=== PATIENT | female | born 1965 ===

== ENCOUNTER 2017-06-25 10:32 | Day surgery (SDC) | payer SELFPAY ==
[2017-06-25 10:56] VITALS: BMI 21.3
[2017-06-25] MEDS ORDERED: Lactated Ringer's 500 ML IV ONE (10:57)
[2017-06-25] MEDS ORDERED: Propofol 10 mg/ml Inj (20 ML) ONE ×2 (11:17→11:28)
[2017-06-25] MEDS ORDERED: Midazolam 2 MG/2 ML VIAL ONE (11:17)
[2017-06-25 11:20] VITALS: O2SAT 99
[2017-06-25 12:24] VITALS: BP 96/57; PULSE 62; RESP 14; TEMP 96.6
== END 2017-06-25 13:42 | disposition home or self-care (01) ==
LOC: H.ENDO 10:32
PROVIDERS: ATTEND Internal Medicine Gastroenterology
DX: Z12.11 Encounter for screening for malignant neoplasm of colon (principal); K64.0 First degree hemorrhoids

== ENCOUNTER 2018-10-14 07:32 | Emergency (ER) | payer SELFPAY ==
[2018-10-14 07:36] VITALS: BMI 23.6
[2018-10-14 07:37] VITALS: O2SAT 98
--- NOTE | 2018-10-14 10:01 | ED PDOC ---
Upper Extremity Pain/Injury Time Seen by Provider: 10/14/18 08:37 Chief Complaint (Nursing): Upper Extremity Problem/Injury Chief Complaint (Provider): Upper Extremity Problem/Injury History Per: Patient History/Exam Limitations: no limitations Onset/Duration Of Symptoms: Days (x 2) Current Symptoms Are (Timing): Still Present Quality: "Pain" Additional Complaint(s): 53 year old female with no significant medical history presents to the ED with neck and shoulder pain for two days. Today it is associated with a headache. Patient denies trauma, a history of similar symptoms, fever, nausea, vomiting, neurological deficits, weakness, sick contacts and recent travel. PMD: none provided Past Medical History Reviewed: Historical Data, Nursing Documentation, Vital Signs Vital Signs: Last Vital Signs Temp 98 F 10/14/18 07:36 Pulse 59 L 10/14/18 07:36 Resp 17 10/14/18 07:36 BP 133/89 10/14/18 07:36 Pulse Ox 98 10/14/18 07:44 - Medical History PMH: No Chronic Diseases - Surgical History Surgical History: No Surg Hx - Family History Family History: States: Unknown Family Hx - Home Medications Home Medications: Ambulatory Orders Medication Instructions Recorded RX: Ibuprofen 800 mg PO Q6 #28 tablet 10/14/18 - Allergies Allergies/Adverse Reactions: Allergies Allergy/AdvReac Type Severity Reaction Status Date / Time No Known Allergies Allergy Verified 10/14/18 07:44 Review of Systems ROS Statement: Except As Marked, All Systems Reviewed And Found Negative Constitutional: Negative for: Fever Respiratory: Negative for: Shortness of Breath Gastrointestinal: Negative for: Nausea, Vomiting Musculoskeletal: Positive for: Neck Pain, Shoulder Pain Neurological: Positive for: Headache. Negative for: Weakness, Numbness Physical Exam - Reviewed Nursing Documentation Reviewed: Yes Vital Signs Reviewed: Yes - Physical Exam Appears: Positive for: Non-toxic, No Acute Distress Head Exam: Positive for: ATRAUMATIC, NORMAL INSPECTION, NORMOCEPHALIC Skin: Positive for: Normal Color, Warm, Dry Eye Exam: Positive for: EOMI, Normal appearance, PERRL Neck: Positive for: Pain On Movement Of Neck (paraspinal tenderness to neck ). Negative for: Normal (tenderness to palpation of spine) Cardiovascular/Chest: Positive for: Regular Rate, Rhythm. Negative for: Murmur Respiratory: Positive for: Normal Breath Sounds. Negative for: Respiratory Distress Gastrointestinal/Abdominal: Positive for: Normal Exam, Soft. Negative for: Tenderness Back: Positive for: Other (tenderness of muscle on palpation of upper back). Negative for: Normal Inspection Extremity: Positive for: Normal ROM. Negative for: Deformity, Swelling Neurologic/Psych: Positive for: Alert, Oriented. Negative for: Motor/Sensory Deficits - ECG O2 Sat by Pulse Oximetry: 98 (RA) Pulse Ox Interpretation: Normal Medical Decision Making Medical Decision Makin:54 MDM: workup for musculoskeletal pain Possibly due to myalgias Influenza swab ordered Toradol and Flexeril given. Because there are no abnormalities on movement of neck, there is no indication for imaging at this time. Will reassess patient. 10:49 Pain has not improved. Will get CT of the neck and reassess patient. 12:29 CT C-spine FINDINGS: VERTEBRAE: No fracture. Normal alignment. No destructive bony lesion. There is a straightening of the cervical spine and slight reversal of the normal lordosis which could be due to the patient's position or degenerative changes. DISCS/SPINAL CANAL/NEURAL FORAMINA: There is posterior osteophyte disc bulge complex at C5-C6 and C6-C7 which resulting in mild spinal stenosis. There is moderate to severe narrowing of the intervertebral disc space noted at C5-C6 and mild narrowing of the disc space at C6-C7. PARASPINAL SOFT TISSUES: Unremarkable. OTHER FINDINGS: None. IMPRESSION: Moderate to mildly severe degenerative changes at C5-C6 and to less degree at C6-C7 associated with posterior osteophyte disc bulge complex which resulting in mild spinal stenosis. Straightening and slight reversal of the normal lordosis of the cervical spine which could be due to muscle spasm. 1350 Pt to follow up with spinal surgeon. Return parameters discussed. Scribe Attestation: Documented by Jimena Delong acting as a scribe for Mimi Clark MD Provider Scribe Attestation: All medical record entries made by the Scribe were at my direction and personally dictated by me. I have reviewed the chart and agree that the record accurately reflects my personal performance of the history, physical exam, medical decision making, and the department course for this patient. I have also personally directed, reviewed, and agree with the discharge instructions and disposition. Disposition - Clinical Impression Clinical Impression: Neck pain - Patient ED Disposition Is Patient to be Admitted: No - Disposition Referrals: Jeffry Shannon MD [Staff Provider] - Disposition: Routine/Home Disposition Time: 13:50 Condition: IMPROVED Additional Instructions: Follow up with primary medical doctor or spinal specialist for pain. Return to the emergency department if symptoms worsen or if you develop numbness, weakness, or tingling. Take Tylenol or Motrin as needed for pain. Prescriptions: RX: Ibuprofen 800 mg PO Q6 #28 tablet Forms: [employer] (Sinhala), [employer] (Andorran) Print Language: DIVEHI
--- NOTE | 2018-10-14 12:32 | CT ---
Date of service: 10/14/2018 PROCEDURE: CT Cervical Spine without contrast HISTORY: neck pain COMPARISON: None available. TECHNIQUE: Axial computed tomography images were obtained of the cervical spine without the use of intravenous contrast. Coronal and sagittal reformatted images were created and reviewed. 3D reformatted images of the cervical spine were also obtained. Radiation dose: Total exam DLP = 233.11 mGy-cm. This CT exam was performed using one or more of the following dose reduction techniques: Automated exposure control, adjustment of the mA and/or kV according to patient size, and/or use of iterative reconstruction technique. FINDINGS: VERTEBRAE: No fracture. Normal alignment. No destructive bony lesion. There is a straightening of the cervical spine and slight reversal of the normal lordosis which could be due to the patient's position or degenerative changes. DISCS/SPINAL CANAL/NEURAL FORAMINA: There is posterior osteophyte disc bulge complex at C5-C6 and C6-C7 which resulting in mild spinal stenosis. There is moderate to severe narrowing of the intervertebral disc space noted at C5-C6 and mild narrowing of the disc space at C6-C7. PARASPINAL SOFT TISSUES: Unremarkable. OTHER FINDINGS: None. IMPRESSION: Moderate to mildly severe degenerative changes at C5-C6 and to less degree at C6-C7 associated with posterior osteophyte disc bulge complex which resulting in mild spinal stenosis. Straightening and slight reversal of the normal lordosis of the cervical spine which could be due to muscle spasm.
[2018-10-14 14:08] VITALS: BP 132/74; PULSE 82; RESP 18; TEMP 98
== END 2018-10-14 14:08 | disposition home or self-care (01) ==
LOC: H.ER 07:32
DX: M54.2 Cervicalgia (principal)
CPT/HCPCS: 72125; 87804; 96372; 99283; J1885